=== PATIENT | male | born 1995 | race Caucasian/White ===

== ENCOUNTER 2022-12-29 07:49 | Emergency (ER) | payer BC, SELFPAY ==
--- NOTE | ~2022-12-29 | US_ITS ---
EXAMINATION: US scrotum doppler DATE: 12/29/2022 08:48 INDICATION: Left testicular pain. TECHNIQUE: Grayscale and Doppler ultrasound images of the testes were obtained. COMPARISON: None. FINDINGS: The right testis measures 5.3 x 3.4 x 3.0 cm. The left testis measures 4.9 x 3.6 x 2.7 cm. There is normal vascular flow to both testes. The right epididymis is normal with normal vascular alonso w. The left epididymis demonstrates a 3 mm cyst. There is increased vascular flow in the left epididy mis in the tail. There are small bilateral hydroceles. There are bilateral varicoceles. IMPRESSION: 1. Left epididymitis. 2. Small bilateral hydroceles. 3. Bilateral varicoceles. Reviewed, dictated and finalized at location A.
[2022-12-29 07:55] VITALS: BP 131/79; PULSE 96; RESP 15; TEMP 37.2; O2SAT 98
--- NOTE | 2022-12-29 08:00 | ED.GENADULT ---
HPI - General Adult General Chief complaint: Urogenital-Male Stated complaint: left testicle pain Time Seen by Provider: 12/29/22 07:51 History of Present Illness HPI narrative: 27-year-old male presenting to the emergency department for evaluation of worsening testicular swelling. Patient states he first noticed the left testicular pain on Thursday and states since Thursday he has developed increased redness and swelling of the left testicle. Patient denies any specific incident of injury. Patient has no prior history of testicular surgery including surgery for torsion or prior vasectomy. Patient states he does not participate in current sports or where a cup. Patient states he has had some diarrhea and thought he may have had some bloody discharge from his penis but denies any hematuria. Patient denies any prior history of kidney stones. Related Data Allergies Allergy/AdvReac Type Severity Reaction Status Date / Time sulfamethoxazole Allergy Mild Unknown Verified 12/29/22 08:04 [From ] trimethoprim [From ] Allergy Mild Unknown Verified 12/29/22 08:04 Review of Systems Review of Systems: All systems reviewed & are unremarkable except as noted in HPI and below PMFSH Family History Family History Mother Hypertension Social History Social History Smoking status: Never smoker Second hand tobacco smoke exposure: No Alcohol intake: current Drinks per week: 4 Substance use: never Substance use type: does not use Living arrangements: with family Occupation/Education: occupation Gender identity (if verbalized by the patient): Male Sexual Orientation (if Verbalized by the Patient): Straight or Heterosexual Exam Narrative: APPEARANCE: Well appearing, no pain, no distress, well-nourished. HEAD: normocephalic, atraumatic. EYES: PERRLA/EOMI, conjunctivae clear. NOSE: Normal no drainage NECK: Supple. No adenopathy, no masses. RESPIRATORY: Airway patent, respirations nonlabored. Clear to auscultation bilaterally, no rales, rhonchi, wheezing. CARDIOVASCULAR: Regular rate and rhythm without murmurs rubs or gallops. ABDOMINAL: Soft, nontender, nondistended, normal bowel sounds Genitourinary exam: Left testicular swelling with scrotal erythema, left testicle is more high riding than right MUSCULOSKELETAL: Moves all extremities. Strength/ROM intact, No edema, No calf tenderness. NEURO: Alert. Cranial nerves II through XII intact. Grossly intact SKIN: Warm, dry. Normal Color Course Course Emergency Course: 18-year-old male presenting for evaluation of left ocular pain. Exam is concerning for torsion. Baseline labs were ordered included a UA. Ultrasound was ordered to evaluate for torsion. Patient initially declined medications for pain control. Patient was updated on the plan for ultrasound. Patient did have hematuria on his UA. Patient does have a leukocytosis of 10.1. Patient's CMP is similar to his baseline. Patient denies any high risk sexual behavior and patient is . Ultrasound showed no evidence of torsion but did show evidence of epididymitis. GC RNA probe was sent on urine. Urine culture is pending. Patient was treated with 500 mg IM Rocephin and 100 mg of p.o. Doxy. Patient was discharged with 100 mg of p.o. Doxy twice daily. Patient required no medications for pain control and rest department. Patient was advised to take Tylenol and ibuprofen for pain control. Patient was also encouraged of close follow-up with urology. All questions and concerns were addressed. Patient's was also updated over the phone while the patient was present. Vital Signs Vital signs: Vital Signs Temperature 98.9 F 12/29/22 07:55 Pulse Rate 96 12/29/22 07:55 Respiratory Rate 15 12/29/22 07:55 Blood Pressure 131/79 12/29/22 07:55 Pulse Oximetry 98 12/29/22 07:55
[2022-12-29 08:29] LABS: Basophils Percent Auto 0.3 % (0.2-1.2); Eosinophils Absolute Auto 0.1 K/mm3 (0-0.3); Eosinophils Percent Auto 1.1 % (0-4.4); Hematocrit 44.5 % (42.0-52.0); Hemoglobin 15.5 g/dL (14.0-18.0); Immature Granulocyte Absolute 0.02 K/mm3 (0.00-0.031); Immature Granulocyte Percent A 0.2 % (0-0.5); Lymphocytes Absolute Auto 1.52 K/mm3 (0.9-3.2); Mean Corpuscular HGB Conc 34.8 g/dl (32-36); Mean Corpuscular Hemoglobin 29.7 pg (26-34); Mean Corpuscular Volume 85.2 fl (80-100); Mean Platelet Volume 9.2 fl (7.4-10.4); Monocytes Percent Auto 9.4 % (2.6-8.5); Neutrophils Absolute Auto 7.5 K/mm3 (1.3-6.7); Platelet Count Result 212 k/mm3 (150-375); Red Blood Count 5.22 M/mm3 (4.6-6.20); Red Cell Distribution Width 12.1 % (11.5-14.5); White Blood Count 10.1 K/mm3 (4.5-10.0)
[2022-12-29 08:33] LABS: Appearance Urine Clear (Clear); Bacteria Urine None Seen /hpf; Bilirubin Urine Negative (Negative); Color Urine Yellow (Yellow); Glucose Urine UA Negative (Negative); Ketones Urine Trace mg/dL (Negative); Leukocyte Esterase Ur 1+ LEU/UL (Negative); Nitrate Urine Negative (Negative); Non Pathogenic Casts 0-2; Protein Urine Trace mg/dL (Negative); Squamous Epithelial Cell Urine None seen /hpf (Few); Urobilinogen Urine 0.2 mg/dL (<2.0); WBC Urine 21-50 /hpf
[2022-12-29 08:43] LABS: Alanine Aminotransferase 25 U/L (6-50); Albumin Level 4.7 g/dL (3.5-5.1); Alkaline Phosphatase 69 U/L (38-126); Anion Gap 6 mmol/L (8-16); Aspartate Amino Transferase 25 U/L (17-59); Bilirubin,Total 0.9 mg/dL (0.2-1.3); Blood Urea Nitrogen 18 mg/dL (9-20); Calcium 9.4 mg/dL (8.4-10.2); Carbon Dioxide 28 mmol/L (22-30); Chloride 103 mmol/L (98-107); Estimated CRCL calculation 133 ml/min; Estimated Glomerular Filt Rate > 60; Glucose 92 mg/dL (65-110); Potassium 3.9 mmol/L (3.4-5.0); Sodium 137 mmol/L (137-145)
[2022-12-29 08:45] LABS: Add Urine Microscopic? YES
[2022-12-29] MEDS: cefTRIAXone 1 GM VIAL 0.5 GM IM (09:29)
[2022-12-29] MEDS: LIDOCAINE HCL 1% LOCAL INJ 10 ML VIAL (09:30)
[2022-12-29] MEDS: DOXYCYCLINE HYCLATE 100 MG TABLET PO (09:30)
[2022-12-29 10:30] VITALS: BP 116/76; PULSE 87; RESP 16; TEMP 37.1; O2SAT 97
== END 2022-12-29 10:33 | disposition home or self-care (01) ==
PROVIDERS: Emergency Provider Emergency Medicine; PCP Family Medicine
DX: N45.1 Epididymitis (principal)
CPT/HCPCS: 36415; 76870; 80053; 81001; 85025; 87086; 93976; 96372; 99284; A9270; J0696